=== PATIENT | female | born 1975 | race African-American/Black ===

== ENCOUNTER 2019-07-30 07:30 | Day surgery (SDC) | payer OTHER, SELFPAY ==
[~2019-07-30] VITALS: Ht 162.6 cm; Wt 93.9 kg
[2019-07-30] MEDS ORDERED: MIDAZOLAM 2 MG/2 ML VIAL ONE (09:25)
[2019-07-30] MEDS ORDERED: fentaNYL 0.05 MG/ML VIAL ONE (09:25)
[2019-07-30] MEDS ORDERED: LIDOCAINE 2% 100 MG/5 ML UJET TP ONE (09:26)
[2019-07-30] MEDS ORDERED: LIDOCAINE VISCOUS 2% 20 ML UDC ONE (09:26)
[2019-07-30] MEDS ORDERED: MIDAZOLAM 2 MG/2 ML VIAL IVP ONE (09:53)
[2019-07-30] MEDS ORDERED: fentaNYL 0.05 MG/ML VIAL IVP ONE (09:54)
== END 2019-07-30 11:15 | disposition home or self-care (01) ==
LOC: MDS 07:30 → MMU 07:31 → MDS 11:15
PROVIDERS: ATTEND Internal Medicine Gastroenterology
DX: R19.7 Diarrhea, unspecified (principal); K21.9 Gastro-esophageal reflux disease without esophagitis; D50.9 Iron deficiency anemia, unspecified; E46 Unspecified protein-calorie malnutrition; I10 Essential (primary) hypertension; Z80.0 Family history of malignant neoplasm of digestive organs; F17.200 Nicotine dependence, unspecified, uncomplicated; Z98.84 Bariatric surgery status; Z98.890 Other specified postprocedural states; Z79.899 Other long term (current) drug therapy
CPT/HCPCS: 36415; 43239; 45380; 81025; J2250; J3010; 88305; 88312; 88313; U0003-CS